=== PATIENT | female | born 2000 | race Two or more races ===

== ENCOUNTER 2020-07-20 20:23 | Emergency (ER) | payer MEDICAID ==
[~2020-07-20] VITALS: Ht 162.6 cm; Wt 95.0 kg
[2020-07-20] MEDS ORDERED: DEXAMETHASONE 4 MG TABLET ONE (20:57)
[2020-07-20] MEDS ORDERED: DEXAMETHASONE 4 MG TABLET PO ONE (21:00)
[2020-07-20] MEDS ORDERED: BICILLIN-LA 1,200,000 UNITS/2 ML IM ONE (22:00)
[2020-07-20 22:35] VITALS: BP 126/73
== END 2020-07-20 22:37 | disposition home or self-care (01) ==
LOC: ED 21:55
DX: J02.0 Streptococcal pharyngitis (principal); B34.9 Viral infection, unspecified
CPT/HCPCS: 87880; 96372; 99283; J0561